=== PATIENT | female | born 1970 | race Caucasian/White ===

== ENCOUNTER 2023-12-15 15:33 | Outpatient (CLI) | payer BC, SELFPAY ==
--- NOTE | ~2023-12-15 | CT_ITS ---
Non-contrast CT scan of the Pelvis Clinical indication: Inguinal hernia Technique: 2.5 mm axial scans were obtained through the pelvis without intravenous or oral contrast. Dose reduction technique was used on this scan by utilizing automated exposure control and iterative reconstruction technique. The dose-length product (DLP) was 350.29 mGy-cm. Findings: No lymphadenopathy seen. Urinary bladder unremarkable. No adnexal mass seen. IUD in place. No ascites. Visualized bowel loops are unremarkable. No distinct hernia identified. Questionable poorly encapsulated lipoma in the left inguinal region. Impression: No hernia identified. Questionable poorly encapsulated lipoma in the left inguinal region versus asym metric fat deposition. Reviewed, dictated and finalized at location . [employer] Impression: No hernia identified. Questionable poorly encapsulated lipoma in the left ingui nal region versus asymmetric fat deposition.
== END 2023-12-15 15:34 ==
PROVIDERS: PCP Family Medicine; Visit Provider Family Medicine
DX: K40.90 Unilateral inguinal hernia, without obstruction or gangrene, not specified as recurrent (principal)
CPT/HCPCS: 72192

== ENCOUNTER 2025-08-28 08:32 | Outpatient (CLI) | payer BC, SELFPAY ==
--- NOTE | ~2025-08-28 | US_ITS ---
EXAM: US abdomen complete HISTORY: Gallbladder polyp COMPARISON(S): None. FINDINGS: Pancreas: It is incompletely visualized because of overlying bowel gas. The visualized portion(s) is/are normal in sonographic appearance. Aorta and proximal IVC: Grossly, no significant abnormality is seen. Liver: It shows normal echogenicity and homogenous echotexture. No hepatic lesions are demonstrated. Gallbladder: There is no cholelithiasis, wall thickening, or pericholecystic fluid. There is a 6 mm gallbladder polyp.. Bile ducts: The CBD measures 5 mm in diameter. This is within normal limits. There is no intrahepatic ductal dilatation seen. Spleen: 9.5 cm in length. No significant abnormality is seen. Right Kidney: 11.2 cm in length. There is normal echogenicity and cortical thickness. There are no parenchymal lesions, and there is no hydronephrosis. Left Kidney: 9.8 cm in length. It has normal echogenicity and cortical thickness. There are no parenchymal lesions, and there is no hydronephrosis. Ascites: There is no ascites seen. IMPRESSION: Gallbladder polyp as described Reviewed, dictated and finalized at location A. [employer]
== END 2025-08-28 08:33 | disposition home or self-care (01) ==
PROVIDERS: PCP Family Medicine; Visit Provider Family Medicine
DX: K82.4 Cholesterolosis of gallbladder (principal)
CPT/HCPCS: 76700